=== PATIENT | female | born 1980 | race Caucasian/White ===

== ENCOUNTER 2017-11-25 08:23 | Emergency (ER) | payer BC, MEDICAID ==
--- NOTE | 2017-11-25 08:36 | UC ---
[facility] HPI - HPI Summary HPI Summary: Patient is 37 year old female without any significant past medical history who present today with right lower last molar tooth ache / jaw pain x 3 days. She has some right neck and ear pain but denies any hoarseness or change in voice or swallowing difficulty. No sick contacts . No skin rash. Denies any fever, chills, cough chest pain or shortness of breath . Denies any abdominal pain , nausea or vomiting , diarrhea or constipation. He has tried ibuprofen with some relief. - History of Current Complaint Stated Complaint: DENTAL COMPLAINT Time Seen by Provider: 11/25/17 08:27 Hx Obtained From: Patient Hx Last Menstrual Period: currently ?: No Onset/Duration: Sudden Onset Severity: Moderate Pain Intensity: 8 Pain Scale Used: 0-10 Numeric Aggravating Factor(s): Nothing Alleviating Factor(s): OTC Meds - Allergies/Home Medications Allergies/Adverse Reactions: Allergies Allergy/AdvReac Type Severity Reaction Status Date / Time No Known Allergies Allergy Verified 11/25/17 08:30 PMH/Surg Hx/FS Hx/Imm Hx Previously Healthy: Yes Other Endocrine History: negative Other Cardiovascular History: negative Other Respiratory History: negative Other GI/ History: negative Other Neurological History: negative Other Cancer History: negative - Surgical History Surgical History: None - Family History Family History: NON CONTRIBUTORY - Social History Alcohol Use: None Substance Use Type: None Smoking Status (MU): Former Smoker Type: Cigarettes Have You Smoked in the Last Year: No - Immunization History Most Recent Influenza Vaccination: declines Most Recent Tetanus Shot: 04/17/14 Most Recent Pneumonia Vaccination: n/a Review of Systems Constitutional: Negative Skin: Negative Eyes: Negative ENT: Dental Pain - Right lower molar tooth pain Respiratory: Negative Cardiovascular: Negative Gastrointestinal: Negative Genitourinary: Negative Motor: Negative Neurovascular: Negative Musculoskeletal: Negative Neurological: Negative Psychological: Negative Is Patient Immunocompromised?: No All Other Systems Reviewed And Are Negative: Yes Physical Exam Triage Information Reviewed: Yes Appearance: Well-Appearing Vital Signs Reviewed: Yes Eye Exam: Normal Eyes: Positive: Conjunctiva Clear ENT Exam: Normal ENT: Positive: Hearing grossly normal, Pharynx normal, TMs normal, Other - very mild erythema of the right lower molar gingiva. mild tenderness to palpate the rt jaw.. Negative: Pharyngeal erythema, Nasal congestion, Nasal drainage, Tonsillar swelling, Tonsillar exudate, Trismus, Muffled voice, Hoarse voice Dental: Positive: Cervical Lymphadenopathy - right anterior cervical. Negative : Percussion Tenderness @ - right lower 2nd or 3rd molar is absent, Abscess @ Neck: Positive: Supple, Tenderness @ - right anteriro cervical lymph node. Respiratory Exam: Normal Respiratory: Positive: Lungs clear, Normal breath sounds, No respiratory distress, No accessory muscle use. Negative: Crackles, Rhonchi, Stridor, Wheezing Abdominal Exam: Normal Abdomen Description: Positive: Nontender, Soft Bowel Sounds: Positive: Present Musculoskeletal: Positive: Strength Intact Psychological Exam: Normal Skin Exam: Normal Skin: Negative: rashes, breakdown Dental Complaint Course/Dx - Course Course Of Treatment: We discussed the findings and further plan. I will prescribe the antibiotic and pain medication to the pharmacy . Patient expressed understanding . - Differential Dx/Diagnosis Differential Diagnosis/Dx: Dental Abscess, Dental Caries, Gingivitis Provider Diagnoses: Dental infection likely in lower 2nd and 3rd molar tooth on right Discharge - Sign-Out/Discharge Documenting (check all that apply): Discharge/Admit/Transfer - Discharge Plan Condition: Stable Disposition: HOME Prescriptions: Amoxicillin/Clavulanate TAB* [Augmentin TAB 875*] 875 mg PO BID 10 Days #20 tab Naproxen [Naproxen 500 mg tab] 500 mg PO BID PRN 15 Days #30 tablet.dr STEPHENS Reason: Pain (Dental) Patient Education Materials: Toothache (ED) Referrals: Laine Mendoza MD [Primary Care Provider] - Additional Instructions: Start taking the antibiotic. Naproxen for pain control up to twice daily as needed . It has been prescribed to the pharmacy . Follow up with your dentist in 2 days. Return to Urgent care / ER if symptoms get worse - Billing Disposition and Condition Condition: STABLE Disposition: HOME Images Dental: 1 - right lower jaw
[2017-11-25 08:37] VITALS: BP 125/91
== END 2017-11-25 09:13 | disposition home or self-care (01) ==
LOC: UCEAST 08:23
DX: K04.7 Periapical abscess without sinus (principal); Z87.891 Personal history of nicotine dependence
CPT/HCPCS: 99212; G0463

== ENCOUNTER 2017-12-02 11:02 | Emergency (ER) | payer BC, MEDICAID ==
[2017-12-02 11:11] VITALS: BP 108/74
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
[2017-12-02] MEDS ORDERED: Tetracaine 0.5% OPTH.SOL 4 ML* 1 DROP BTL RIGHT EYE ONE (11:46)
[2017-12-02] MEDS ORDERED: Fluorescein Sod TOPICAL 0.6* 0.6 MG TEST OPHTHALMIC ONE (11:46)
[2017-12-02] MEDS ORDERED: Tetan/Diph/Pertus SYR(Tdap)* 0.5 ML SYR(BOOSTRIX) use SYR IM ONE (12:05)
== END 2017-12-02 12:22 | disposition home or self-care (01) ==
LOC: UCEAST 11:02
DX: S05.01XA Injury of conjunctiva and corneal abrasion without foreign body, right eye, initial encounter (principal); W50.0XXA Accidental hit or strike by another person, initial encounter; Y93.9 Activity, unspecified; Y92.9 Unspecified place or not applicable; Z23 Encounter for immunization; Z82.49 Family history of ischemic heart disease and other diseases of the circulatory system; Z87.891 Personal history of nicotine dependence
CPT/HCPCS: 90715; 99213; A9270-GY; G0463

== ENCOUNTER 2018-03-25 17:00 | Emergency (ER) | payer BC, MEDICAID ==
[2018-03-25 17:07] VITALS: BP 129/92
[2018-03-25] MEDS ORDERED: Ibuprofen TAB* 600 MG PO ONE (17:16)
--- NOTE | 2018-03-25 17:18 | UC ---
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 - History of Current Complaint Chief Complaint: UCRespiratory Stated Complaint: COUGH,FEVER,ACHES,CHILLS Time Seen by Provider: 03/25/18 17:01 Hx Obtained From: Patient Hx Last Menstrual Period: 2 wks ago ?: No Onset/Duration: Sudden Onset Pain Intensity: 9 Pain Scale Used: 0-10 Numeric Associated Signs & Symptoms: Positive: Fever, Myalgia, Headache Related Hx: Possible Flu/Infectious Exposure, Recent Antipyretics Dose And Time - 7:30 AM - Allergy/Home Medications Allergies/Adverse Reactions: Allergies Allergy/AdvReac Type Severity Reaction Status Date / Time No Known Allergies Allergy Verified 03/25/18 17:07 Home Medications: Home Medications [id number] (Nf) [Excedrin Extra Strength 250-250-65 mg (NF)] 2 tab PO BID 03/25/18 [History Confirmed 03/25/18] PMH/Surg Hx/FS Hx/Imm Hx Previously Healthy: Yes - Surgical History Surgical History: Yes Surgery Procedure, Year, and Place: D&C - Family History Known Family History: Positive: Cardiac Disease Family History: NON CONTRIBUTORY - Social History Occupation: Employed Full-time Lives: With Family Alcohol Use: Occasionally Substance Use Type: None Smoking Status (MU): Former Smoker Type: Cigarettes Have You Smoked in the Last Year: No - Immunization History Most Recent Influenza Vaccination: declines Most Recent Tetanus Shot: unsure Most Recent Pneumonia Vaccination: n/a Review of Systems Constitutional: Fever, Chills, Fatigue Skin: Negative Eyes: Negative ENT: Negative Respiratory: Cough Cardiovascular: Negative Gastrointestinal: Negative Genitourinary: Negative Motor: Negative Neurovascular: Negative Musculoskeletal: Arthralgia, Myalgia Neurological: Headache Psychological: Negative Is Patient Immunocompromised?: No All Other Systems Reviewed And Are Negative: Yes Physical Exam Triage Information Reviewed: Yes Appearance: No Pain Distress, Well-Nourished, Ill-Appearing Vital Signs: Initial Vital Signs Temp 101.4 F 03/25/18 17:05 Pulse 129 03/25/18 17:05 Resp 18 03/25/18 17:05 BP 129/92 03/25/18 17:05 Pulse Ox 99 03/25/18 17:05 Vital Signs Reviewed: Yes Eye Exam: Normal Eyes: Positive: Conjunctiva Clear ENT Exam: Normal ENT: Positive: Normal ENT inspection, Hearing grossly normal, Pharynx normal, TMs normal, Uvula midline. Negative: Nasal congestion, Trismus, Muffled voice, Hoarse voice, Sinus tenderness Dental Exam: Normal Neck exam: Normal Neck: Positive: Supple, Nontender, No Lymphadenopathy Respiratory Exam: Normal Respiratory: Positive: Chest non-tender, Lungs clear, Normal breath sounds, No respiratory distress, No accessory muscle use Cardiovascular Exam: Normal Cardiovascular: Positive: RRR, No Murmur, Pulses Normal, Brisk Capillary Refill Musculoskeletal Exam: Normal Musculoskeletal: Positive: Strength Intact, ROM Intact, No Edema Neurological Exam: Normal Neurological: Positive: Alert, Muscle Tone Normal Psychological Exam: Normal Skin Exam: Normal Diagnostics - Laboratory Diagnostic Studies Completed/Ordered: influenza A/B (-) Flu Course/Dx - Course Course Of Treatment: rest tylenol ibuprofen or Aleeve---increase fluids follow with pcp prn - Differential Dx/Diagnosis Provider Diagnoses: Viral Illness Discharge - Sign-Out/Discharge Documenting (check all that apply): Patient Departure All imaging exams completed and their final reports reviewed: No Studies - Discharge Plan Condition: Stable Disposition: HOME Patient Education Materials: Fever in Adults (ED), Viral Syndrome (ED) Forms: *Work Release Referrals: Laine Mendoza MD [Primary Care Provider] - If Needed - Billing Disposition and Condition Condition: STABLE Disposition: Home
== END 2018-03-25 18:00 | disposition home or self-care (01) ==
LOC: UCEAST 17:00
DX: B34.9 Viral infection, unspecified (principal); Z87.891 Personal history of nicotine dependence
CPT/HCPCS: 87798; 99211; G0463

== ENCOUNTER 2018-03-28 17:50 | Emergency (ER) | payer BC, MEDICAID ==
[2018-03-28] MEDS ORDERED: Levofloxacin TAB* 250 MG PO ONE (19:30)
[2018-03-28] MEDS ORDERED: guaiFENesin/CODIEN 100MG-10MG* 5 ML UDC PO ONE (19:30)
--- NOTE | 2018-03-28 19:30 | ED ---
Shortness of Breath - HPI Summary HPI Summary: Patient complains of dry cough until she gags, subsequent N/V with cough, BARCLAY, fever up to 103, chills, sweats 5 days. Patient seen at urgent care 2 days ago , flew negative diagnosed with a viral syndrome. Patient states she came in today for new symptom of shortness of breath starting today. Denies sore throat , nasal congestion, ear pain, neck stiffness, CP, abdominal pain, change in urine, change in BM. Medical history is none. - History of Current Complaint Chief Complaint: EDFluSymptoms Time Seen by Provider: 03/28/18 18:21 Hx Obtained From: Patient Onset/Duration: Gradual Onset Timing: Constant Current Severity: Mild Dyspnea At: Exertion Aggrevating Factors: Movement Alleviating Factors: Nothing Associated Signs & Symptoms: Cough (Nonproductive), Fever, Chills - Allergy/Home Medications Allergies/Adverse Reactions: Allergies Allergy/AdvReac Type Severity Reaction Status Date / Time No Known Allergies Allergy Verified 03/25/18 17:07 PMH/Surg Hx/FS Hx/Imm Hx Endocrine/Hematology History: Denies: Hx Diabetes, Hx Thyroid Disease Cardiovascular History: Denies: Hx Hypertension Respiratory History: Denies: Hx Asthma, Hx Chronic Obstructive Pulmonary Disease (COPD) GI History: Denies: Hx Ulcer History: Denies: Hx Dialysis Neurological History: Denies: Hx CVA - Surgical History Surgery Procedure, Year, and Place: D&C Infectious Disease History: No Infectious Disease History: Denies: Hx Hepatitis, Hx Human Immunodeficiency Virus (HIV), History Other Infectious Disease, Traveled Outside the [place] in Last 30 Days - Family History Known Family History: Positive: Cardiac Disease Family History: NON CONTRIBUTORY - Social History Alcohol Use: Occasionally Substance Use Type: Reports: None Smoking Status (MU): Former Smoker Type: Cigarettes Have You Smoked in the Last Year: No Review of Systems Positive: Fever, Chills Eyes: Negative ENT: Negative Cardiovascular: Negative Positive: Shortness Of Breath, Cough Positive: Vomiting, Nausea Genitourinary: Negative Musculoskeletal: Negative Skin: Negative Positive: Headache Psychological: Normal All Other Systems Reviewed And Are Negative: Yes Physical Exam - Summary Physical Exam Summary: Abdomen soft nontender. Triage Information Reviewed: Yes Vital Signs On Initial Exam: Initial Vitals Temp Pulse Resp BP Pulse Ox 97.4 F 88 18 145/90 99 03/28/18 17:51 03/28/18 17:51 03/28/18 17:51 03/28/18 17:51 03/28/18 17:51 Vital Signs Reviewed: Yes Appearance: Positive: Well-Appearing Skin: Positive: Warm Head/Face: Positive: Normal Head/Face Inspection Eyes: Positive: Normal ENT: Positive: Pharyngeal erythema, TMs normal, Uvula midline. Negative: Tonsillar swelling, Tonsillar exudate, Trismus, Muffled voice, Hoarse voice, Sinus tenderness Respiratory/Lung Sounds: Positive: Clear to Auscultation Cardiovascular: Positive: Normal Abdomen Description: Positive: Nontender Musculoskeletal: Positive: Normal Neurological: Positive: Normal Psychiatric: Positive: Normal AVPU Assessment: Alert - Wilson Coma Scale Best Eye Response: 4 - Spontaneous Best Motor Response: 6 - Obeys Commands Best Verbal Response: 5 - Oriented Coma Scale Total: 15 Diagnostics - Vital Signs Vital Signs Temp Pulse Resp BP Pulse Ox 03/28/18 17:51 97.4 F 88 18 145/90 99 - Laboratory Lab Statement: Any lab studies that have been ordered have been reviewed, and results considered in the medical decision making process. Course/Dx - Course Course Of Treatment: Patient complains of dry cough until she gags, subsequent N /V with cough, BARCLAY, fever up to 103, chills, sweats 5 days. Patient seen at urgent care 2 days ago, flew negative diagnosed with a viral syndrome. Patient states she came in today for new symptom of shortness of breath starting today. Denies sore throat, nasal congestion, ear pain, neck stiffness, CP, abdominal pain, change in urine, change in BM. Medical history is none. Physical exam unremarkable. Vital signs within normal limits. Chest x-ray positive for right lower lobe pneumonia. Patient started on Levaquin here in the ED. Rx for Levaquin 750 mg by mouth 10 days. Rx for Robitussin-AC for cough. - Diagnoses Provider Diagnoses: Right lower lobe pneumonia, Cough Discharge - Sign-Out/Discharge Documenting (check all that apply): Patient Departure - Discharge Plan Condition: Stable Disposition: HOME Prescriptions: Albuterol HFA INHALER* [Ventolin HFA Inhaler*] 1 - 2 puff INH Q4H PRN 30 Days # 1 mdi PRN Reason: Shortness Of Breath guaiFENesin/CODIEN 100MG-10MG* [Robitussin AC 100Mg-10Mg*] 10 ml PO TID 5 Days # 75 udc MDD 20ml Levofloxacin TAB* [Levaquin TAB*] 750 mg PO DAILY 10 Days #10 tab Patient Education Materials: Pneumonia (ED) Forms: *Work Release Referrals: Laine Mendoza MD [Primary Care Provider] - Additional Instructions: Take Tylenol or ibuprofen for fever control. Follow-up with primary care. Return to the ED for any new or worsening symptoms - Billing Disposition and Condition Condition: STABLE Disposition: Home
[2018-03-28 19:57] VITALS: BP 138/82
--- NOTE | 2018-03-29 05:21 | RAD ---
INDICATION: Cough, shortness of breath. Fever. Congestion. COMPARISON: No relevant prior exams available on the [facility] for comparison. TECHNIQUE: Dual energy PA and routine lateral views of the chest were obtained. REPORT: Mild alveolar consolidation at the basilar segments of the RIGHT lower lobe. Negative for pleural effusion or pneumothorax. The heart, pulmonary vasculature, and mediastinal contours are unremarkable. IMPRESSION: #. RIGHT lower lobe pneumonia. R0
== END 2018-03-28 19:56 | disposition home or self-care (01) ==
LOC: ED 17:50
DX: J18.9 Pneumonia, unspecified organism (principal); Z87.891 Personal history of nicotine dependence
CPT/HCPCS: 71046; 99282; A9270-GY